=== PATIENT | female | born 1995 | race Hispanic/Latino ===

== ENCOUNTER 2019-10-23 17:26 | Emergency (ER) | payer OTHER ==
--- NOTE | 2019-10-23 19:57 | RAD ---
THREE VIEWS LEFT ANKLE: 10/23/19 HISTORY: Slipped off a step and felt a crack in the ankle. Left ankle pain. FINDINGS: Three views of the left ankle shows no evidence of acute fracture or dislocation. Mild lateral soft t issue swelling is seen. No degenerative changes are present. IMPRESSION: No evidence of acute osseous abnormality. POS: [facility]
== END 2019-10-23 18:49 | disposition home or self-care (01) ==
LOC: ERS 17:26
DX: S93.402A Sprain of unspecified ligament of left ankle, initial encounter (principal); X50.1XXA Overexertion from prolonged static or awkward postures, initial encounter

== ENCOUNTER 2019-11-02 11:22 | Outpatient (CLI) | payer OTHER ==
--- NOTE | 2019-11-02 11:41 | RAD ---
XR Ankle Lt 3 View STANDARD History: Injury. Pain Comparison: Radiograph October 23, 2019 Findings: Moderate lateral malleolar soft tissue swelling. No acute displaced fracture. Of note the l ateral talar process is not well interrogated due to lack of a normal AP radiograph. Impression: No acute displaced fracture although AP evaluation is limited. Given patient still cannot bear weight, MRI is recommended.
== END 2019-11-02 11:23 | disposition home or self-care (01) ==
LOC: BICRAD 11:22
PROVIDERS: ATTEND Family Medicine
DX: M25.572 Pain in left ankle and joints of left foot (principal)

== ENCOUNTER 2022-12-24 23:37 | Emergency (ER) | payer OTHER ==
[2022-12-25] MEDS ORDERED: methylPREDNISolone Sod Succ/PF 125 MG/2 ML VIAL ONE (00:55)
[2022-12-25] MEDS ORDERED: Famotidine 20 MG TAB ONE (00:56)
[2022-12-25] MEDS ORDERED: diphenhydrAMINE 25 MG CAP ONE (00:56)
[2022-12-25] MEDS ORDERED: EPINEPHrine 1 MG/ML AMP ONE (01:24)
== END 2022-12-25 03:05 | disposition home or self-care (01) ==
LOC: ERS 23:37
DX: T78.2XXA Anaphylactic shock, unspecified, initial encounter (principal)
CPT/HCPCS: 71045; 93005; 96372; J0171; J2930

== ENCOUNTER 2023-01-10 12:56 | Outpatient (CLI) | payer OTHER | END 2023-01-10 12:57 | disposition home or self-care (01) | LOC: RAD 12:56 | PROVIDERS: ATTEND Family Medicine | DX: J18.9 Pneumonia, unspecified organism (principal) | CPT/HCPCS: 71046 ==

== ENCOUNTER 2023-05-17 23:10 | Observation (INO) | payer BC, OTHER ==
[~2023-05-17 23:10] MED LIST: Albuterol HFA (OR) 200 PUFF INH ONE; Iopamidol 370 76% 100 ML VIAL ONE
[2023-05-17] MEDS ORDERED: Ondansetron PF 4 MG/2 ML Vial ONE (23:47)
[2023-05-17] MEDS ORDERED: Morphine 4 MG/ML VIAL ONE (23:47)
[2023-05-18] MEDS ORDERED: Pantoprazole 40 MG VIAL ONE (00:20)
[2023-05-18 00:41] LABS: #Basophils 0.1 thou/uL (0.0-0.2); #Monocytes 0.9 thou/uL (0.11-0.59); %Basophils 0.4 % (0.0-1.0); %Eosinophils 0.2 % (0.0-10.0); %Lymphocytes 20.5 % (21.0-51.0); %Monocytes 6.2 % (0.0-10.0); %Neutrophils 70.6 % (42.0-75.0); Hematocrit 43.1 % (36.0-47.0); Hemoglobin 14.4 g/dL (12.0-16.0); Mean Corpuscular HGB CONC 33.4 g/dL (32.0-36.0); Mean Corpuscular Hemoglobin 27.4 pg (27.0-31.0); Mean Corpuscular Volume 82.1 fl (78.0-98.0); Mean Platelet Volume 9.2 fL (7.4-10.4); Platelet Count 363 10x3/uL (130-400); Red Blood Cell (RBC) Count 5.25 mill/uL (4.20-5.40); White Blood Cell (WBC) Count 14.1 10x3/uL (4.8-10.8)
[2023-05-18 00:58] LABS: ALT (SGPT) 33 U/L (8-55); AST (SGOT) 25 U/L (5-34); Albumin 4.1 g/dL (3.5-5.0); Alkaline Phosphatase 84 U/L (40-110); Anion Gap 16 mmol/L (10-20); BUN (Urea Nitrogen) 17 mg/dL (7.0-18.7); Bilirubin, Total 0.2 mg/dL (0.2-1.2); Calc. Creatinine Clearance 0 mL/min (70-130); Calcium 9.1 mg/dL (7.8-10.44); Carbon Dioxide 21 mmol/L (22-29); Chloride 104 mmol/L (98-107); Estimated GFR 122; Globulin 3.5 g/dL (2.4-3.5); Glucose 130 mg/dL (70-105); Lipase 24 U/L (8-78); Potassium 3.7 mmol/L (3.5-5.1); Protein, Total 7.6 g/dL (6.0-8.3); Sodium 137 mmol/L (136-145)
[2023-05-18 01:54] LABS: Bacteria/HPF None Seen HPF (None Seen); Bilirubin Negative (Negative); Blood, Urine 1+ (Negative); CAUTI Indications for Culture Pelvic or flank pain; Clarity Clear (Clear); Glucose, Urine (Dipstick) Normal (Negative); Ketone, Urine Negative (Negative); Leukocyte Negative Leu/uL (Negative); Nitrite Negative (Negative); Protein, Urine (Dipstick) Negative (Neg-Trace); RBC/HPF 0-3 HPF (0-3); Specific Gravity, Urine 1.028 (1.002-1.036); Squamous Epithelial None Seen HPF (0-3); Urobilinogen Normal mg/dL (Less than 2); WBC/HPF 0-3 HPF (0-3); pH, Urine 5.5 (5.0-9.0)
[2023-05-18 01:57] LABS: Pregnancy Test - Urine (BHCG) Negative (Negative); Pregu Control Background? CLEAR/WHITE (CLR/WHITE); Pregu Control Bar Appear? YES (CONTROL BAR); Specific Gravity 1.028 (1.002-1.036); Urine Culture Reflex No No
[2023-05-18] MEDS ORDERED: LevoFLOXacin 750 mg/D5W 150 ml Premix Bag ONE (03:43)
[2023-05-18] MEDS ORDERED: Ipratropium/Albuterol 3 ML NEB NEB PRN (04:09)
[2023-05-18] MEDS ORDERED: Ondansetron PF 4 MG/2 ML Vial IVP PRN (04:09)
[2023-05-18] MEDS ORDERED: Morphine 2 MG/ML VIAL SLOW IVP PRN (04:09)
[2023-05-18 05:39] VITALS: BMI 28.3
[2023-05-18] MEDS: Sodium Chloride 0.9% 1,000 ML IV SCH ×2 (06:32→15:35)
[2023-05-18] MEDS: Acetaminophen 500 MG TAB PO SCH ×3 (07:29→18:02)
[2023-05-18] MEDS ORDERED: Famotidine/PF 20 mg/2ml Vial SLOW IVP SCH (09:00)
[2023-05-18] MEDS ORDERED: traMADol HCl 50 MG TAB PO PRN (11:44)
[2023-05-18] MEDS ORDERED: Ketorolac Tromethamine 30 MG (1 mL) VIAL IVP SCH (11:45)
[2023-05-18] MEDS ORDERED: Scopolamine 1 mg/72 hour Patch TD SCH (12:00)
[2023-05-18] MEDS ORDERED: Lidocaine 1% PF 5 ML VIAL ONE (13:27)
[2023-05-18] MEDS ORDERED: Dexamethasone 4 mg/ml Vial ONE (13:27)
[2023-05-18] MEDS ORDERED: PROPOFOL 20 ML ONE (13:27)
[2023-05-18] MEDS ORDERED: SUGAMMADEX SODIUM 200 MG/2 ML VIAL ONE (13:27)
[2023-05-18] MEDS ORDERED: Ondansetron PF 4 MG/2 ML Vial ONE (13:27)
[2023-05-18] MEDS ORDERED: Midazolam HCl 2 mg/2 ml Vial ONE (13:27)
[2023-05-18] MEDS ORDERED: fentaNYL PF 100 MCG/2 ML SYRINGE ONE (13:27)
[2023-05-18] MEDS ORDERED: Rocuronium Bromide 10 MG/ML (10ML VIAL) ONE (13:27)
[2023-05-18] MEDS ORDERED: EPINEPHrine 1 MG/ML VIAL ONE (13:48)
[2023-05-18] MEDS ORDERED: Bupivacaine PF 0.5% 30 ML VIAL ONE (13:48)
[2023-05-18] MEDS ORDERED: Ondansetron HCl/PF 4 MG/2 ML Vial IVP PRN (14:19)
[2023-05-18] MEDS ORDERED: Promethazine HCl 25 MG/ML VIAL IM PRN (14:19)
[2023-05-18] MEDS ORDERED: fentaNYL 50 mcg/mL 1 mL Vial ONE ×3 (14:20→14:57)
[2023-05-18] MEDS ORDERED: Meperidine HCl/PF 25 MG (1 mL) VIAL ONE (15:01)
[2023-05-18 16:14] VITALS: TEMP 98.7
[2023-05-18 19:04] VITALS: BP 110/71
[2023-05-19] MEDS ORDERED: LevoFLOXacin 750 mg/D5W 750 MG in Premix 1 BAG IVPB SCH (04:00)
== END 2023-05-18 19:40 | disposition home or self-care (01) ==
LOC: ERS 23:10 → T4-A 05-18 04:09
PROVIDERS: ADMIT Specialist; ATTEND Specialist
PROC: 0FT44ZZ Resection of Gallbladder, Percutaneous Endoscopic Approach (ICD-10-PCS; principal; 2023-05-18)
DX: K80.12 Calculus of gallbladder with acute and chronic cholecystitis without obstruction (principal); D72.829 Elevated white blood cell count, unspecified; J45.909 Unspecified asthma, uncomplicated; Z79.51 Long term (current) use of inhaled steroids; Z88.5 Allergy status to narcotic agent; Z88.0 Allergy status to penicillin
CPT/HCPCS: 36415; 71046; 71275; 74177; 76705; 80053; 81001; 81025; 83690; 85025; 88304; 93005; 96365; 96375; C1889; C9113; G0378; J0171; J1100; J1956; J2175; J2250; J2270; J2405; J2704; J3010; Q9967; S0020; S0028